=== PATIENT | male | born 1960 | race Caucasian/White ===

== ENCOUNTER 2020-04-24 07:39 | Outpatient (CLI) | payer BC, OTHER ==
[2020-04-24 14:37] LABS: #Basophils 0.1 thou/uL (0.0-0.2); #Eosinphils 0.3 thou/uL (0.0-0.7); #Lymphocytes 2.4 thou/uL (1.20-3.40); #Neutrophils 7.7 thou/uL (1.40-6.50); %Basophils 0.8 % (0.0-1.0); %Eosinophils 2.3 % (0.0-10.0); %Monocytes 8.4 % (0.0-10.0); %Neutrophils 67.5 % (42.0-75.0); Mean Corpuscular HGB CONC 33.5 g/dL (32.0-36.0); Mean Corpuscular Hemoglobin 33.3 pg (27.0-31.0); Mean Corpuscular Volume 99.2 fL (78.0-98.0); Mean Platelet Volume 7.6 fL (7.4-10.4); Platelet Count 318 thou/uL (130-400); RBC Distribution Width 12.7 % (11.5-14.5); Red Blood Cell (RBC) Count 5.73 mill/uL (4.70-6.10); White Blood Cell (WBC) Count 11.4 thou/uL (4.8-10.8)
[2020-04-24 15:27] LABS: ALT (SGPT) 17 U/L (8-55); AST (SGOT) 18 U/L (5-34); Albumin 4.6 g/dL (3.4-4.8); Alkaline Phosphatase 63 U/L (40-110); Anion Gap 18 mmol/L (10-20); BUN (Urea Nitrogen) 9 mg/dL (8.4-25.7); Bilirubin, Total 0.4 mg/dL (0.2-1.2); Calc. Creatinine Clearance 0 mL/min (70-130); Calcium 9.3 mg/dL (7.8-10.44); Carbon Dioxide 22 mmol/L (23-31); Chloride 104 mmol/L (98-107); Estimated GFR-MDRD 74; Globulin 2.7 g/dL (2.4-3.5); Glucose 94 mg/dL (80-115); Potassium 4.6 mmol/L (3.5-5.1); Protein, Total 7.3 g/dL (5.8-8.1); Sodium 139 mmol/L (136-145)
[2020-04-25 03:41] LABS: Hemoglobin A1c 5.5 % (4.0-6.0)
[2020-04-25 12:32] LABS: SARS-CoV-2 MS2 Positive; SARS-CoV-2 N Gene Negative; SARS-CoV-2 S Gene Negative; SARS-CoV-2 by NAA Not Detected (NotDetected); SARS-CoV-2 orf1ab Negative
== END 2020-04-24 07:40 | disposition home or self-care (01) ==
LOC: LABBT 07:39
PROVIDERS: ATTEND Surgery
DX: Z01.812 Encounter for preprocedural laboratory examination (principal); Z20.828 Contact with and (suspected) exposure to other viral communicable diseases; K63.5 Polyp of colon
CPT/HCPCS: 80053; 83036; 85025; 87635; U0003

== ENCOUNTER 2020-05-06 20:35 | Inpatient (IN) | payer BC, OTHER ==
[~2020-05-06 20:35] MED LIST: Iopamidol 370 76% 100 ML VIAL ONE
[2020-05-06 21:28] LABS: #Basophils 0.1 thou/uL (0.0-0.2); #Eosinphils 0.2 thou/uL (0.0-0.7); #Lymphocytes 1.8 thou/uL (1.20-3.40); #Monocytes 1.7 thou/uL (0.11-0.59); %Basophils 0.5 % (0.0-1.0); %Eosinophils 1.9 % (0.0-10.0); %Monocytes 14.2 % (0.0-10.0); %Neutrophils 68.4 % (42.0-75.0); Hemoglobin 17.8 g/dL (14.0-18.0); Mean Corpuscular HGB CONC 35.5 g/dL (32.0-36.0); Mean Corpuscular Hemoglobin 33.9 pg (27.0-31.0); Mean Corpuscular Volume 95.6 fL (78.0-98.0); Mean Platelet Volume 7.6 fL (7.4-10.4); Platelet Count 359 thou/uL (130-400); RBC Distribution Width 12.1 % (11.5-14.5); Red Blood Cell (RBC) Count 5.24 mill/uL (4.70-6.10); White Blood Cell (WBC) Count 11.7 thou/uL (4.8-10.8)
[2020-05-06 21:39] LABS: ALT (SGPT) 23 U/L (8-55); AST (SGOT) 19 U/L (5-34); Alkaline Phosphatase 73 U/L (40-110); Anion Gap 16 mmol/L (10-20); BUN (Urea Nitrogen) 11 mg/dL (8.4-25.7); Bilirubin, Total 0.4 mg/dL (0.2-1.2); Calc. Creatinine Clearance 0 mL/min (70-130); Calcium 9.1 mg/dL (7.8-10.44); Carbon Dioxide 22 mmol/L (23-31); Chloride 101 mmol/L (98-107); Estimated GFR-MDRD Greater than 90; Globulin 3.1 g/dL (2.4-3.5); Glucose 106 mg/dL (80-115); Lipase 32 U/L (8-78); Potassium 4.2 mmol/L (3.5-5.1); Protein, Total 7.1 g/dL (5.8-8.1); Sodium 135 mmol/L (136-145)
[2020-05-06] MEDS ORDERED: Morphine 4 MG/ML VIAL ONE (21:54)
[2020-05-06] MEDS ORDERED: Ondansetron PF 4 MG/2 ML Vial ONE (21:54)
--- NOTE | 2020-05-06 22:25 | CT ---
CT ABDOMEN AND PELVIS WITH IV CONTRAST: 05/06/20 PROVIDED CLINICAL HISTORY: Abdominal pain. FINDINGS: No comparisons. The visualized lung bases are free of significant opacity. Coronary calcium is demonstrated. The liver, spleen, pancreas, kidneys and adrenal glands appear unremarkable. Postoperative changes of right colon resection are demonstrated. The proximal most remaining colon in the region of the hepatic flexure demonstrated apparent mural thickening and surrounding fat strandi ng. There is fecalization of the distal most small bowel contents suggesting stasis. There is mild fr ee fluid about several loops of distal most small bowel. There is no evidence for christelle bowel obstruc tion. Free intraperitoneal fluid is seen about the right hepatic margin cranially as well as within the right pericolic gutter. Changes of extra-anatomic aortobifemoral bypass. Foci of gas are seen within the right inguinal canal , which appears otherwise normal. The osseous structures demonstrate no concerning lytic or blastic lesions. IMPRESSION: 1. Mural thickening and adjacent fat stranding involving the proximal most remaining colon sugge sting an infectious or inflammatory process. Fecalization of the distal small bowel contents suggest stasis. 2. Foci of gas are seen within the right inguinal canal, the etiology and significance of which are uncertain. POS: ABIMAEL
[2020-05-06] MEDS ORDERED: Piperacillin/Tazobactam 4.5 GM VIAL ONE (23:01)
[2020-05-07] MEDS ORDERED: Acetaminophen 325 MG TAB PO PRN (00:45)
[2020-05-07] MEDS ORDERED: HYDROcodone/Acetaminophen 5/325 mg Tablet PO PRN ×2 (00:45)
[2020-05-07] MEDS ORDERED: Ondansetron ODT 4 MG TAB SL PRN (00:45)
[2020-05-07] MEDS ORDERED: Ondansetron PF 4 MG/2 ML Vial IVP PRN (00:45)
[2020-05-07 01:28] VITALS: BMI 25.1
[2020-05-07] MEDS: Lactated Ringer's 1,000 ML IV SCH ×2 (01:30→08:34)
[2020-05-07] MEDS ORDERED: Piperacillin/Tazobactam 3.375 GM in Sodium Chloride 0.9% 100 ML IVPB SCH (06:00)
[2020-05-07] MEDS ORDERED: Sodium Chloride 0.9% 500 ML IV SCH (07:30)
--- NOTE | 2020-05-07 07:38 | HP ---
CHIEF COMPLAINT: Abdominal pain and bloating. HISTORY OF PRESENT ILLNESS: The patient is a 59-year-old male, who is 10 days status post right hemicolectomy for a large polyp. It was done open due to adhesions having bowel movements up until Tuesday, then he stopped having bowel movements and developed progressive abdominal swelling and pain, more so on the right. He is still passing gas. He had a CT scan showing fecalization of material in the distal small bowel, as well as some edema around the anastomosis and minimal in the colon. PAST MEDICAL HISTORY: Hypertension, hyperlipidemia, osteoarthritis, and aortobifem bypass. PAST SURGICAL HISTORY: Aortobifem bypass and recent right hemicolectomy. MEDICATIONS: 1. Metoprolol. 2. Aspirin. 3. Rosuvastatin. FAMILY HISTORY: Colon cancer. SOCIAL HISTORY: Former smoker. No tobacco or alcohol use. ALLERGIES: NO KNOWN DRUG ALLERGIES. PHYSICAL EXAMINATION: VITAL SIGNS: His temperature is 97.7, pulse 61, blood pressure 121/74. GENERAL: He is awake, alert, says he feels better than yesterday. Still passing gas. LUNGS: Clear. HEART: Regular rate and rhythm. ABDOMEN: Does not appear distended, soft. Really no significant tenderness. The incision is healing well without evidence of hernia or infection. LABORATORY DATA: White count is 11, H and H are 17 and 50, platelet count 359. His electrolytes are fine. ASSESSMENT: Postoperative edema at the anastomosis causing partial obstruction. PLAN: He has been on bowel rest. Will try clear liquids. Will avoid solid food for all the time. Job ID: [id number]
[2020-05-07] MEDS: D5 1/2 NS w/20 mEq KCL 1,000 ML IV SCH ×3 (08:34→19:53)
[2020-05-07] MEDS: Enoxaparin Sodium 40 MG/0.4 ML SYRINGE SC SCH (08:35)
[2020-05-07] MEDS: Ketorolac Tromethamine 30 MG/ML VIAL IVP SCH ×3 (11:06→23:28)
[2020-05-07 12:02] LABS: SARS-CoV-2 MS2 Positive; SARS-CoV-2 N Gene Negative; SARS-CoV-2 S Gene Negative; SARS-CoV-2 by NAA Not Detected (NotDetected); SARS-CoV-2 orf1ab Negative
[2020-05-08] MEDS: Ketorolac Tromethamine 30 MG/ML VIAL IVP SCH ×4 (05:55→23:37)
[2020-05-08] MEDS: Enoxaparin Sodium 40 MG/0.4 ML SYRINGE SC SCH (08:30)
[2020-05-08] MEDS: D5 1/2 NS w/20 mEq KCL 1,000 ML IV SCH ×3 (08:30→19:44)
--- NOTE | 2020-05-08 11:29 | PRG ---
DATE OF SERVICE: 05/08/2020 SUBJECTIVE: The patient says he has occasional pain on the right upper abdomen, but it is minimal. No nausea or vomiting. He is still passing gas, but has not had a bowel movement. PHYSICAL EXAMINATION: VITAL SIGNS: Temperature 97.7, pulse 64, and blood pressure 131/79. GENERAL: He is up in a chair. He looks fine, in no apparent distress. ABDOMEN: Soft, nondistended, and nontender. ASSESSMENT: Partial obstruction due to edema of the anastomosis. PLAN: We will try full liquids and keep ambulating. We would like to have him get a bowel movement and then discharge. Job ID: [id number]
[2020-05-09] MEDS: Ketorolac Tromethamine 30 MG/ML VIAL IVP SCH (05:03)
[2020-05-09 08:26] VITALS: BP 126/76; TEMP 97.6
[2020-05-09] MEDS: Enoxaparin Sodium 40 MG/0.4 ML SYRINGE SC SCH (08:42)
[2020-05-09] MEDS: D5 1/2 NS w/20 mEq KCL 1,000 ML IV SCH (08:46)
--- NOTE | 2020-05-12 06:19 | DIS ---
DATE OF ADMISSION: 05/08/2020 DATE OF DISCHARGE: 05/09/2020 DISCHARGE DIAGNOSIS: Partial bowel obstruction, postoperative. PROCEDURES DURING ADMISSION: Bowel rest, IV fluids, CT scan of the abdomen and pelvis. HOSPITAL COURSE: The patient was admitted. CT showed partial obstruction at the anastomosis with fecalization of the distal small bowel. He was placed at bowel rest, given IV fluids. His pain resolved. Tenderness resolved. He eventually had a bowel movement, and now, he is tolerating full liquids well. He is discharged home on full liquids for a week, then a low residue diet. He will follow up with me in 2 weeks. Job ID: [id number]
--- NOTE | 2020-05-12 11:35 | PQF ---
CLINICAL DOCUMENTATION CLARIFICATION FORM: Dear DrEileen: Bryant Ramos Jr, MD Date / Time: 05/12/20: 1133 Please exercise your independent, professional judgment in responding to the clarification form. Clinical indicators are provided on the bottom of this form for your review Please check appropriate box(es): [ ] Partial bowel obstruction is a complication of Hemicolectomy [ ] Partial bowel obstruction is not a complication of Hemicolectomy [ ] Other diagnosis [ ] Unable to determine Physician Signature: Date/Time: For continuity of documentation, please document condition throughout progress notes and discharge summary. Thank You To be completed by CDI/Coding staff for physician review: Present Clinical Indicators - Signs / Symptoms / Labs Results and Location in Medical Record [x ] Postoperative edema at the anastomosis causing partial obstruction Progress note, 05/07, Bryant Ramos Jr, MD [x ] Developed abdominal swelling and pain, more so on the right H&P, 05/06, Bryant Ramos Jr, MD [x ] Some edema around the anastomosis and minimal in the colon H&P, 05/06, Bryant Ramos Jr, MD [x ] The incision is healing well without evidence of hernia or infection H&P, 05/06, Bryant Ramos Jr, MD [x ] Partial obstruction due to edema of the anastomosis Progress note, 05/08, Bryant Ramos Jr, MD Present Risk Factors Results and Location in Medical Record [x ] Aortobifem bypass and recent right hemicolectomy H&P, 05/06, Bryant Ramos Jr, MD Present Treatments Results and Location in Medical Record [ x ] Zosyn.IV MAR, 05/06 [x ] IV Fluids DS, 05/09,Bryant Ramos Jr, MD CDS/Dialysis Nurse Signature: Jaswinder Nicolas phone #:[phone] Date/Time: 05/12/20: 1133 This is a permanent part of the Medical Record [facility]
== END 2020-05-09 10:44 | disposition home or self-care (01) | DRG 390 ==
LOC: ERS 20:35 → SJJU 22:44 → OBSVTOIN 05-08 10:25
PROVIDERS: ADMIT Surgery; ATTEND Surgery
DX: K91.31 Postprocedural partial intestinal obstruction (principal); I10 Essential (primary) hypertension; E78.5 Hyperlipidemia, unspecified; E78.00 Pure hypercholesterolemia, unspecified; Z20.828 Contact with and (suspected) exposure to other viral communicable diseases; Y83.8 Other surgical procedures as the cause of abnormal reaction of the patient, or of later complication, without mention of misadventure at the time of the procedure; M19.90 Unspecified osteoarthritis, unspecified site; F17.210 Nicotine dependence, cigarettes, uncomplicated; Z90.49 Acquired absence of other specified parts of digestive tract
CPT/HCPCS: 74177; 80053; 83690; 85025; 87635; 96365; 96372; 96375; 96376; G0378; J1650; J1885; J2270; J2405; J2543; J3480; J3490; Q9967; U0003

== ENCOUNTER 2022-01-05 22:22 | Inpatient (IN) | payer BC ==
[2022-01-05 22:57] LABS: #Basophils 0.1 thou/uL (0.0-0.2); #Eosinphils 0.3 thou/uL (0.0-0.7); #Lymphocytes 3.1 thou/uL (1.20-3.40); %Basophils 0.5 % (0.0-1.0); %Eosinophils 1.9 % (0.0-10.0); %Lymphocytes 21.1 % (21.0-51.0); %Monocytes 6.9 % (0.0-10.0); %Neutrophils 69.5 % (42.0-75.0); Hemoglobin 16.9 g/dL (14.0-18.0); Mean Corpuscular HGB CONC 33.5 g/dL (32.0-36.0); Mean Corpuscular Volume 98.6 fL (78.0-98.0); Mean Platelet Volume 6.1 fL (7.4-10.4); Platelet Count 370 thou/uL (130-400); RBC Distribution Width 12.5 % (11.5-14.5); Red Blood Cell (RBC) Count 5.13 mill/uL (4.70-6.10); White Blood Cell (WBC) Count 14.4 thou/uL (4.8-10.8)
[2022-01-05 23:25] LABS: ALT (SGPT) 32 U/L (8-55); AST (SGOT) 26 U/L (5-34); Albumin 4.2 g/dL (3.4-4.8); Alkaline Phosphatase 50 U/L (40-110); Anion Gap 15 mmol/L (10-20); BUN (Urea Nitrogen) 9 mg/dL (8.4-25.7); Bilirubin, Total 0.4 mg/dL (0.2-1.2); Calc. Creatinine Clearance 0 mL/min (70-130); Calcium 9.3 mg/dL (7.8-10.44); Carbon Dioxide 23 mmol/L (23-31); Chloride 103 mmol/L (98-107); Globulin 2.9 g/dL (2.4-3.5); Glucose 136 mg/dL (80-115); Protein, Total 7.1 g/dL (5.8-8.1); Sodium 137 mmol/L (136-145)
[2022-01-05 23:38] LABS: CKMB 2.8 ng/mL (0-6.6)
[2022-01-06] MEDS ORDERED: Enoxaparin Sodium 80 MG/0.8 ML SYRINGE ONE (00:42)
[2022-01-06 02:45] LABS: Troponin I 0.455 ng/mL (< 0.028)
[2022-01-06 03:18] LABS: SARS-CoV-2 NAA Rapid Test Not Detected (NotDetected)
[2022-01-06 05:30] LABS: Troponin I 0.832 ng/mL (< 0.028)
[2022-01-06] MEDS ORDERED: Acetaminophen 325 MG TAB PO PRN (07:48)
[2022-01-06] MEDS ORDERED: Ondansetron ODT 4 MG TAB PO PRN (07:48)
[2022-01-06] MEDS ORDERED: Ondansetron PF 4 MG/2 ML Vial IVP PRN (07:48)
[2022-01-06] MEDS ORDERED: Nitroglycerin 0.4 MG TAB (25 Tab Bottle) SL PRN (07:48)
[2022-01-06] MEDS ORDERED: Senokot S 8.6-50 MG TAB PO PRN (07:48)
[2022-01-06] MEDS ORDERED: Bisacodyl 5 MG TAB PO PRN (07:48)
[2022-01-06] MEDS ORDERED: Aspirin Chewable 81 MG TAB PO SCH (08:00)
[2022-01-06 08:21] LABS: Hemoglobin A1c 5.7 % (4.0-6.0)
[2022-01-06 08:40] LABS: Cardiac Risk 4.2 (Less than 4.5); Cholesterol 109 mg/dl (< 200 Desired); HDL Cholesterol 26 mg/dL (>60 Neg Risk); Triglycerides 412 mg/dL (Less than 150)
[2022-01-06] MEDS ORDERED: Iopamidol 370 76% 100 ML VIAL ONE (08:45)
[2022-01-06] MEDS ORDERED: Iopamidol 370 76% 50 ML VIAL FS ONE (08:45)
[2022-01-06] MEDS ORDERED: Lisinopril 2.5 MG TAB PO SCH (09:00)
[2022-01-06] MEDS: Nicotine 14 MG PATCH TD SCH (09:36)
[2022-01-06] MEDS: Aspirin 81 mg Enteric Coated Tablet PO SCH (09:39)
[2022-01-06] MEDS ORDERED: Nitroglycerin 2% Ointment 1 INCH/1 GM Packet ONE (10:14)
[2022-01-06] MEDS: Nitroglycerin 2% Ointment 1 INCH/1 GM Packet TOP SCH ×2 (10:27→21:21)
[2022-01-06] MEDS ORDERED: Verapamil 5 MG/2 ML VIAL ONE (10:43)
[2022-01-06] MEDS ORDERED: Heparin 10,000 UNITS/ 10 ML VIAL ONE (10:43)
[2022-01-06] MEDS ORDERED: Nitroglycerin 100MG/250ML BOT 250 ML ONE (10:43)
[2022-01-06] MEDS ORDERED: Communication Order-Pharmacy FS SCH (10:45)
[2022-01-06] MEDS ORDERED: Sodium Chloride 0.9% 1,000 ML IV SCH (10:45)
[2022-01-06] MEDS ORDERED: Atropine Sulfate 1 mg/10 ml Syringe ONE (11:50)
[2022-01-06] MEDS ORDERED: Enoxaparin Sodium 80 MG/0.8 ML SYRINGE SC SCH (12:00)
[2022-01-06] MEDS ORDERED: TICAGRELOR 90 MG TABLET ONE (13:19)
[2022-01-06] MEDS ORDERED: Bivalirudin 250 MG VIAL ONE (13:31)
[2022-01-06] MEDS ORDERED: Aggrastat 12.5 MG/250 ML 250 ML ONE (13:31)
[2022-01-06] MEDS ORDERED: Aggrastat 12.5 MG/250 ML 250 ML IVPB SCH (13:45)
[2022-01-06] MEDS ORDERED: TICAGRELOR 90 MG TABLET PO SCH (13:45)
[2022-01-06] MEDS: Sodium Chloride 0.9% 1,000 ML IV SCH ×2 (15:53→23:44)
[2022-01-06 17:54] LABS: #Basophils 0.1 thou/uL (0.0-0.2); #Eosinphils 0.2 thou/uL (0.0-0.7); #Lymphocytes 3.1 thou/uL (1.20-3.40); #Neutrophils 13.3 thou/uL (1.40-6.50); %Basophils 0.4 % (0.0-1.0); %Eosinophils 1.3 % (0.0-10.0); %Lymphocytes 17.3 % (21.0-51.0); %Monocytes 5.6 % (0.0-10.0); %Neutrophils 75.4 % (42.0-75.0); Mean Corpuscular HGB CONC 32.4 g/dL (32.0-36.0); Mean Corpuscular Hemoglobin 32.2 pg (27.0-31.0); Mean Corpuscular Volume 99.4 fL (78.0-98.0); Mean Platelet Volume 6.3 fL (7.4-10.4); Platelet Count 357 thou/uL (130-400); RBC Distribution Width 12.7 % (11.5-14.5); Red Blood Cell (RBC) Count 5.29 mill/uL (4.70-6.10); White Blood Cell (WBC) Count 17.7 thou/uL (4.8-10.8)
[2022-01-06] MEDS ORDERED: Enoxaparin Sodium 40 MG/0.4 ML SYRINGE SC SCH (21:00)
[2022-01-06] MEDS ORDERED: Enoxaparin Sodium 30 MG/0.3 ML SYRINGE SC SCH (21:00)
[2022-01-06 21:13] VITALS: BMI 26.6
[2022-01-06] MEDS: Lisinopril 5 MG TAB PO SCH (21:16)
[2022-01-06] MEDS: TICAGRELOR 90 MG TABLET PO SCH (21:18)
[2022-01-06] MEDS: Rosuvastatin 20 MG TAB PO SCH (21:18)
[2022-01-07 00:37] LABS: #Basophils 0.1 thou/uL (0.0-0.2); #Eosinphils 0.3 thou/uL (0.0-0.7); #Lymphocytes 2.5 thou/uL (1.20-3.40); #Monocytes 1.3 thou/uL (0.11-0.59); #Neutrophils 13.4 thou/uL (1.40-6.50); %Basophils 0.5 % (0.0-1.0); %Eosinophils 1.5 % (0.0-10.0); %Lymphocytes 14.2 % (21.0-51.0); %Monocytes 7.5 % (0.0-10.0); %Neutrophils 76.2 % (42.0-75.0); Hemoglobin 16.4 g/dL (14.0-18.0); Mean Corpuscular HGB CONC 32.6 g/dL (32.0-36.0); Mean Corpuscular Hemoglobin 32.2 pg (27.0-31.0); Mean Corpuscular Volume 98.6 fL (78.0-98.0); Mean Platelet Volume 6.3 fL (7.4-10.4); Platelet Count 381 thou/uL (130-400); RBC Distribution Width 12.7 % (11.5-14.5); White Blood Cell (WBC) Count 17.6 thou/uL (4.8-10.8)
[2022-01-07 03:43] LABS: #Eosinphils 0.2 thou/uL (0.0-0.7); #Lymphocytes 2.4 thou/uL (1.20-3.40); #Monocytes 1.3 thou/uL (0.11-0.59); #Neutrophils 13.6 thou/uL (1.40-6.50); %Basophils 0.2 % (0.0-1.0); %Eosinophils 1.3 % (0.0-10.0); %Lymphocytes 13.6 % (21.0-51.0); %Monocytes 7.4 % (0.0-10.0); %Neutrophils 77.4 % (42.0-75.0); Hemoglobin 16.4 g/dL (14.0-18.0); Mean Corpuscular HGB CONC 32.9 g/dL (32.0-36.0); Mean Corpuscular Hemoglobin 32.5 pg (27.0-31.0); Mean Corpuscular Volume 98.7 fL (78.0-98.0); Mean Platelet Volume 6.1 fL (7.4-10.4); Platelet Count 337 thou/uL (130-400); RBC Distribution Width 12.5 % (11.5-14.5); Red Blood Cell (RBC) Count 5.07 mill/uL (4.70-6.10); White Blood Cell (WBC) Count 17.6 thou/uL (4.8-10.8)
[2022-01-07 04:10] LABS: ALT (SGPT) 30 U/L (8-55); AST (SGOT) 26 U/L (5-34); Albumin 3.9 g/dL (3.4-4.8); Alkaline Phosphatase 43 U/L (40-110); Anion Gap 12 mmol/L (10-20); BUN (Urea Nitrogen) 7 mg/dL (8.4-25.7); Bilirubin, Total 0.8 mg/dL (0.2-1.2); Calc. Creatinine Clearance 98 mL/min (70-130); Calcium 8.8 mg/dL (7.8-10.44); Carbon Dioxide 24 mmol/L (23-31); Chloride 107 mmol/L (98-107); Globulin 2.6 g/dL (2.4-3.5); Glucose 102 mg/dL (80-115); Protein, Total 6.5 g/dL (5.8-8.1); Sodium 139 mmol/L (136-145)
[2022-01-07 06:08] LABS: #Basophils 0.1 thou/uL (0.0-0.2); #Eosinphils 0.2 thou/uL (0.0-0.7); #Lymphocytes 2.9 thou/uL (1.20-3.40); #Monocytes 1.3 thou/uL (0.11-0.59); #Neutrophils 12.7 thou/uL (1.40-6.50); %Basophils 0.4 % (0.0-1.0); %Eosinophils 1.2 % (0.0-10.0); %Lymphocytes 17.1 % (21.0-51.0); %Monocytes 7.3 % (0.0-10.0); Hemoglobin 16.9 g/dL (14.0-18.0); Mean Corpuscular HGB CONC 32.6 g/dL (32.0-36.0); Mean Corpuscular Hemoglobin 32.5 pg (27.0-31.0); Mean Corpuscular Volume 99.7 fL (78.0-98.0); Mean Platelet Volume 6.3 fL (7.4-10.4); Platelet Count 365 thou/uL (130-400); RBC Distribution Width 12.8 % (11.5-14.5); Red Blood Cell (RBC) Count 5.21 mill/uL (4.70-6.10); White Blood Cell (WBC) Count 17.2 thou/uL (4.8-10.8)
[2022-01-07] MEDS: Nitroglycerin 2% Ointment 1 INCH/1 GM Packet TOP SCH ×2 (06:38→16:01)
[2022-01-07] MEDS: Enoxaparin Sodium 40 MG/0.4 ML SYRINGE SC SCH (09:00)
[2022-01-07] MEDS: TICAGRELOR 90 MG TABLET PO SCH ×2 (09:01→19:58)
[2022-01-07] MEDS: Aspirin 81 mg Enteric Coated Tablet PO SCH (09:02)
[2022-01-07] MEDS: Lisinopril 5 MG TAB PO SCH ×2 (09:04→19:57)
[2022-01-07] MEDS: Nicotine 14 MG PATCH TD SCH (09:05)
[2022-01-07] MEDS ORDERED: Nicotine 14 MG PATCH TD PRN (15:34)
[2022-01-07] MEDS: Rosuvastatin 20 MG TAB PO SCH (19:57)
[2022-01-08] MEDS ORDERED: Folic Acid 1 MG TAB PO SCH (09:00)
[2022-01-08] MEDS ORDERED: Cyanocobalamin (Vitamin B-12) 1,000 MCG TAB PO SCH (09:00)
[2022-01-08] MEDS: Aspirin 81 mg Enteric Coated Tablet PO SCH (09:34)
[2022-01-08] MEDS: Lisinopril 5 MG TAB PO SCH (09:35)
[2022-01-08] MEDS: Enoxaparin Sodium 40 MG/0.4 ML SYRINGE SC SCH (09:35)
[2022-01-08] MEDS: TICAGRELOR 90 MG TABLET PO SCH (09:35)
[2022-01-08 12:13] VITALS: BP 123/65; TEMP 99.5
== END 2022-01-08 14:00 | disposition home or self-care (01) | DRG 247 ==
LOC: ERS 22:22 → ERHOLD 01-06 01:27 → 2SW 01-06 08:01 → OBSVTOIN 01-06 13:39 → CCU 01-06 15:08 → 2NO 01-07 16:21
PROVIDERS: ADMIT Internal Medicine; ATTEND Internal Medicine
PROC: 027035Z Dilation of Coronary Artery, One Artery with Two Drug-eluting Intraluminal Devices, Percutaneous Approach (ICD-10-PCS; principal; 2022-01-06)
PROC: 4A023N7 Measurement of Cardiac Sampling and Pressure, Left Heart, Percutaneous Approach (ICD-10-PCS; 2022-01-06)
PROC: B2111ZZ Fluoroscopy of Multiple Coronary Arteries using Low Osmolar Contrast (ICD-10-PCS; 2022-01-06)
PROC: B240ZZ3 Ultrasonography of Single Coronary Artery, Intravascular (ICD-10-PCS; 2022-01-06)
PROC: 3E033PZ Introduction of Platelet Inhibitor into Peripheral Vein, Percutaneous Approach (ICD-10-PCS; 2022-01-06)
PROC: B2151ZZ Fluoroscopy of Left Heart using Low Osmolar Contrast (ICD-10-PCS; 2022-01-06)
DX: I21.4 Non-ST elevation (NSTEMI) myocardial infarction (principal); Z20.822 Contact with and (suspected) exposure to COVID-19; E78.00 Pure hypercholesterolemia, unspecified; I73.9 Peripheral vascular disease, unspecified; E78.5 Hyperlipidemia, unspecified; I12.9 Hypertensive chronic kidney disease with stage 1 through stage 4 chronic kidney disease, or unspecified chronic kidney disease; D72.829 Elevated white blood cell count, unspecified; D75.89 Other specified diseases of blood and blood-forming organs; F17.210 Nicotine dependence, cigarettes, uncomplicated; I49.9 Cardiac arrhythmia, unspecified; E78.1 Pure hyperglyceridemia; R73.03 Prediabetes; N18.2 Chronic kidney disease, stage 2 (mild); Z86.718 Personal history of other venous thrombosis and embolism; Z95.828 Presence of other vascular implants and grafts; Z91.09 Other allergy status, other than to drugs and biological substances; Z79.82 Long term (current) use of aspirin; Z79.899 Other long term (current) drug therapy; Z98.890 Other specified postprocedural states; Z82.49 Family history of ischemic heart disease and other diseases of the circulatory system; Z71.6 Tobacco abuse counseling; Z86.010 Personal history of colon polyps; Z90.49 Acquired absence of other specified parts of digestive tract; Z91.038 Other insect allergy status; I25.110 Atherosclerotic heart disease of native coronary artery with unstable angina pectoris; F17.290 Nicotine dependence, other tobacco product, uncomplicated
CPT/HCPCS: 36415; 71045; 80053; 80061; 82553; 83036; 84443; 84484; 85025; 85347; 85379; 92928; 92978; 93005; 93010; 93306; 93454; 93798; 94760; 96372; 97139; C1753; C1874; C9600; G0378; J0461; J0583; J1644; J1650; J3246; J7050; Q9967; U0002